=== PATIENT | female | born 1970 | race Caucasian/White ===

== ENCOUNTER → 2018-07-25 | Outpatient (CLI) | payer OTHER ==
--- NOTE | 2018-07-01 07:02 | PDANEPAE ---
ECT Pre Anesthetic Evaluation Allergies/Adverse Reactions: No Known Allergies Allergy (Unverified 08/24/17 15:03) Patient ID confirmed: Yes H&P reviewed: Yes Pre-anesthetic history reviewed: Yes Heart: regular rate and rhythym Lungs: no respiratory distress Mallampati Score: Class 1 ASA Status: II Home Medications: Medication Instructions Recorded QUEtiapine FUMARATE [Seroquel 150 mg PO HS 08/24/17 300mg (*)] lamoTRIgine [LamICTAL 100 MG (*)] 300 mg PO DAILY 08/24/17 clonIDINE [Catapres (*)] 0.4 mg PO HS 08/31/17 clonazePAM [Klonopin] 2 mg PO HS 10/05/17 clonazePAM [klonoPIN (*)] 1 mg PO DAILY 11/28/17 Hydrocodone/APAP 5/325 [[place] 1 - 2 tab PO Q4H PRN 03/25/18 5/325 (*)] SUMAtriptan [Imitrex 25 MG (*)] 25 - 50 mg PO Q2H PRN 03/25/18 Brexpiprazole [Rexulti 3 MG (*)] 3 mg PO HS tab 03/26/18 Ondansetron Odt [Zofran Odt 4 mg 4 mg PO Q6HRS PRN tab 03/26/18 (*)] Sennosides [Senokot] 1 - 2 tab PO BID PRN tab 03/26/18 buPROPion XL [Wellbutrin 150mg XL] 300 mg PO DAILY tab 03/26/18 Medication review: completed Patient interviewed: Yes Patient examined: Yes Anesthetic plan discussed with patient: Yes Anesthetic risks discussed with patient: Yes ECT Pre-Anesthetic History - Anesthesia History Hx Anesthesia Complications (with details): none Family Hx Anesthesia Complications: none - Medications In the Past 6 Months the Patient Has Taken: Narcotics - Tobacco/Alcohol/Drug Use Smoking Status: Never smoked Hx Drug/Substance Abuse: No - Prior Surgeries/Hospitalizations Prior Surgeries: knee replacment Prior Medical Hospitalizations: none - Pulmonary History ECT Hx Asthma: No Hx Abnormal Chest X-Ray: No Hx Oxygen in Use at Home: No - Cardiovascular History Hx Hypertension: No Currently Uses Hypertension Medication: No Hx Arrhythmias: No Hx Palpitations: No Hx Chest Pain: No Hx Coronary Artery / Peripheral Vascular Disease: No Hx Blood Clot: No - Neurologic History Hx Cerebrovascular Accident: No Hx CT Scan Or MRI Of The Brain: No Hx Epilepsy, Convulsions, Seizures, Or Blackouts: No Hx Frequent Or Severe Headaches: No Hx Numbness: No Hx Neurologic Disorder: No Neurologic History Comment: history of migraines - Dental History Current Dental Issues: Bridges Dental History Comment: 2 false teeth - Endocrine History Hx Diabetes: No Current Daily Insulin Injections: No Hx Thyroid Problems: No - Renal/Urologic History Hx Renal Disorders: No Hx Urinary Tract Problems: No - Liver History Hx Hepatic Disorders: No - Cancer History Hx Cancer: No - Hematology History Hx Unexplained Bleeding Of Any Type: No Hx Ease Of Bruising: No Hx Anemia: No - Gastrointestinal History Hx Gastroesophogeal Reflux Disease: No Hx Ulcers: No Hx Hiatal Hernia: No Hx Difficulty Swallowing: No - Musculoskeletal Hisory Hx Chronic Pain: No Chronic Pain Location: Other Hx Arthritis: No Musculoskeletal History Comment: knee from surgeon putting in knee wrong, left side - Opthalmic History Hx Glaucoma: No Visual Assistive Devices: Glasses Hx Opthalmic Disorders: No - Other Health History Physical Disabililty: No Recent Cough, Cold, or Fever: No Significant Weight Loss In The Last 4 Months: No Possible the Patient Might be : No
--- NOTE | 2018-07-01 07:03 | PDHPUP ---
History & Physical Update H&P update statement: This history and physical update is based on an assessment of the patient which was completed after admission or registration (within 24 hours), but prior to the surgery/procedure. H&P update: H&P reviewed & patient examined, no change in patient's condition since H&P completed
--- NOTE | 2018-07-01 08:55 | POSTANESTH ---
Post Anesthetic Evaluation Cardiovascular Status: Normal, Stable Respiratory Status: Normal, Stable Level of Consciousness/Mental Status: Can Participate in Eval Pain Control: Adequate, Prn Tx Ordered Nausea/Vomiting Control: Adequate, Prn Tx Ordered Complications Possibly Related to Anesthesia: None Noted
== END ==
LOC: FIMAGING 06:56
PROVIDERS: ATTEND Hospitalist
DX: Z12.31 Encounter for screening mammogram for malignant neoplasm of breast (principal)